=== PATIENT | male | born 1955 | race African-American/Black ===

== ENCOUNTER 2016-06-28 10:55 | Emergency (ER) | payer MEDICARE ==
[~2016-06-28] VITALS: Ht 167.6 cm; Wt 72.0 kg
[~2016-06-28 10:55] MED LIST: ASCO500T9 PO; ASPI-1061 PO; ASPI-556 PO; CARV25 PO; CARV25TA32 PO; DIPH25 PO; DOCU-174 PO; DONE5TAB PO; DONE5TAB33 PO; ENAL2.5 PO; ENAL5 PO; FERR-89 PO; GABA-531 PO; INSNOV SQ; INSU3INS3 SQ; METF500T4 PO; MULT-71 PO; OLAN10TA3 PO; OLAN5Z PO; PANT40TA25 PO; PROSTAT PO; SENN-161 PO; SIMV-260 PO
[2016-06-28] MEDS ORDERED: OLAN5TAB2 PO (11:10)
[2016-06-28] MEDS ORDERED: CARV12 PO (11:10)
[2016-06-28] MEDS ORDERED: HYDR25 PO (11:10)
[2016-06-28] MEDS ORDERED: SIMV-260 PO (11:10)
[2016-06-28] MEDS ORDERED: DIPH25 PO (11:10)
[2016-06-28] MEDS ORDERED: FERR-89 PO (11:10)
[2016-06-28] MEDS ORDERED: DEXTROSE 5%-0.9% SODIUM CHL 1,000 ML IV ONE (11:15)
[2016-06-28 11:40] LABS: BASOPHILS % (AUTO) 0.5 % (0.0-2.0); EOSINOPHILS % (AUTO) 3.1 % (1.0-6.0); HEMATOCRIT 39.3 % (41-53); HEMOGLOBIN 12.9 g/dL (13.5-17.5); LYMPHOCYTES # (AUTO) 1.2 K/uL (1.0-4.8); LYMPHOCYTES % (AUTO) 13.1 % (22.0-44.0); MEAN CORPUSCULAR HEMOGLOBIN 32.4 pg (26.0-34.0); MEAN CORPUSCULAR HGB CONC 32.9 G/dL (31.0-37.0); MEAN CORPUSCULAR VOLUME 99 fL (80-100); MONOCYTES # (AUTO) 0.8 K/uL (0.1-1.0); MONOCYTES % (AUTO) 8.1 % (2.0-9.0); NEUTROPHILS % (AUTO) 75.2 % (40.0-70.0); PLATELET COUNT (AUTO) 233 K/uL (150-450); RED BLOOD CELL COUNT(AUTO) 3.99 MIL/uL (4.50-5.90); RED CELL DISTRIBUTION WIDTH 13.1 % (11.5-14.5); WHITE BLOOD COUNT (AUTO) 9.3 K/uL (4.5-11.0)
[2016-06-28 11:41] LABS: PROTHROMBIN TIME 10.6 SEC (9.4-11.6)
[2016-06-28 12:04] LABS: B-TYPE NATRIURETIC PEPTIDE 21 pg/mL (0-100)
[2016-06-28 12:08] LABS: ALANINE AMINOTRANSFERASE 40 U/L (12-78); ANION GAP 7 mmol/L (8-16); ASPARTATE AMINOTRANSFERASE 25 U/L (15-37); BILIRUBIN,TOTAL 0.4 mg/dL (0.1-1.0); CALCIUM, TOTAL 9.2 mg/dL (8.8-10.5); CARBON DIOXIDE 31 mmol/L (22-29); CHLORIDE 105 mmol/L (98-107); CREATINE KINASE MB 1.2 ng/mL (0-5); CREATINE KINASE, TOTAL 274 U/L (39-308); CREATININE 1.17 mg/dL (0.60-1.30); GLOMERULAR FILTR. RATE CALC > 60 mL/min (>60); POTASSIUM 3.8 mmol/L (3.5-5.1); SODIUM SERUM 143 mmol/L (136-145); TOTAL PROTEIN, SERUM 8.5 g/dL (6.4-8.2); UREA NITROGEN, BLOOD 18 mg/dL (7-18)
[2016-06-28 12:21] LABS: GLUCOSE,POINT OF CARE 74 MG/DL (70-110)
[2016-06-28 13:21] LABS: GLUCOSE,POINT OF CARE 205 MG/DL (70-110)
[2016-06-28 14:31] LABS: ADD UA MICROSCOPIC NO; APPEARANCE,URINE CLEAR (CLEAR); GLUCOSE, URINE (UA) 100 mg/dL (NEGATIVE); KETONES,URINE NEGATIVE (NEGATIVE); LEUKOCYTE ESTERASE ,URINE NEGATIVE (NEGATIVE); OCCULT BLOOD,URINE NEGATIVE (NEGATIVE); PROTEIN,URINE NEGATIVE (NEGATIVE)
[2016-06-28 14:41] LABS: GLUCOSE,POINT OF CARE 274 MG/DL (70-110)
[2016-06-28 15:08] LABS: RBC,URINE None Seen /HPF (0-2); SQUAMOUS EPITHELIAL CELL,UR Rare /LPF (None Seen); WBC,URINE 0-2 /HPF (0-5)
[2016-06-28 16:39] VITALS: BP 156/79
[2016-06-28 16:47] LABS: GLUCOSE,POINT OF CARE 281 MG/DL (70-110)
== END 2016-06-28 17:04 | disposition home or self-care (01) ==
LOC: EMS 10:57
DX: T38.3X5A Adverse effect of insulin and oral hypoglycemic [antidiabetic] drugs, initial encounter (principal); Y92.89 Other specified places as the place of occurrence of the external cause; E11.649 Type 2 diabetes mellitus with hypoglycemia without coma; I10 Essential (primary) hypertension; E78.00 Pure hypercholesterolemia, unspecified; F17.210 Nicotine dependence, cigarettes, uncomplicated; Z79.82 Long term (current) use of aspirin; Z79.4 Long term (current) use of insulin
CPT/HCPCS: 36415; 71010; 80053; 81001; 81003; 82550; 82553; 82948; 82962; 83880; 84484; 85025; 85610; 85730; 93005; 96360; 96361; 99285; J7042